=== PATIENT | female | born 1935 | race Caucasian/White ===

== ENCOUNTER 2024-07-11 20:20 | Inpatient (IN) | payer MEDICARE, BC ==
[~2024-07-11] VITALS: Ht 165.1 cm; Wt 56.0 kg
[~2024-07-11 20:20] MED LIST: AMLO10TA13 PO; LATA2.5D14 EACHEYE; MELA5CAP PO; METO-395 PO; OMEP20CA16 PO; ZOLP5TAB8 PO
[2024-07-11 20:43] LABS: BASOPHILS # (AUTO) 0.1 X10'3 (0-0.2); EOSINOPHILS # (AUTO) 0.1 X10'3 (0-0.9); EOSINOPHILS % (AUTO) 1.5 % (0-6); HEMATOCRIT 33.4 % (35.0-45.0); HEMOGLOBIN 11.1 g/dl (12.0-16.0); LYMPHOCYTES # (AUTO) 1.5 X10'3 (1.1-4.8); LYMPHOCYTES % (AUTO) 23.9 % (21-51); MEAN CORPUSCULAR HEMOGLOBIN 25.7 PG (27.0-31.0); MEAN CORPUSCULAR HGB CONC 33.1 g/dL (33.0-36.5); MEAN CORPUSCULAR VOLUME 77.5 FL (78-98); MEAN PLATELET VOLUME 8.7 FL (7.4-10.4); MONOCYTES # (AUTO) 0.6 X10'3 (0-0.9); MONOCYTES % (AUTO) 9.4 % (2-12); NEUTROPHILS # (AUTO) 4.1 X10'3 (1.8-7.7); NEUTROPHILS % (AUTO) 64.2 % (42-75); PLATELET COUNT 153 X10'3 (140-440); RED BLOOD COUNT 4.31 X10'6 (4.20-5.60); RED CELL DISTRIBUTION WIDTH 14.9 % (11.5-14.5); WHITE BLOOD COUNT 6.5 X10'3 (4.5-11.0)
[2024-07-11 20:53] LABS: ALBUMIN 3.8 G/DL (3.4-5.0); ANION GAP 8 (8-16); BLOOD UREA NITROGEN 16 MG/DL (7-18); BUN/CREATININE RATIO 14.4 (10.0-20.0); CHLORIDE 103 MMOL/L (99-107); CREATININE 1.11 MG/DL (0.40-0.90); GLUCOSE 117 MG/DL (70-104); POTASSIUM 3.4 MMOL/L (3.5-5.1); SODIUM 140 MMOL/L (135-145); eCRCL 32 ML/MIN; eGFR 47 ML/MIN
[2024-07-11 20:55] LABS: APTT 25 SECONDS (22-32); INR 1.1 INR; PROTHROMBIN TIME 11.1 SECONDS (9.0-12.0)
[2024-07-11] MEDS: aspirin 325mg tablet PO ONE (21:09)
[2024-07-11] MEDS ORDERED: morphine 2 MG/ML inj. syringe IV PRN (22:10)
[2024-07-11] MEDS ORDERED: magnesium Cl slow-release 64mg tablet PO PRN (22:10)
[2024-07-11] MEDS ORDERED: magnesium sulf-water 4G/100mL 100 ML IV PRN (22:10)
[2024-07-11] MEDS ORDERED: ondansetron/PF 4mg/2ml inj IV PRN (22:10)
[2024-07-11] MEDS ORDERED: potassium Cl 20 mEq SR tablet PO PRN (22:10)
[2024-07-11] MEDS ORDERED: acetaminophen 325mg tablet PO PRN (22:10)
[2024-07-11] MEDS ORDERED: potassium Cl 40MEQ/1/2NS 520ml 520 ML IV PRN (22:10)
[2024-07-11] MEDS ORDERED: mag hydrox/Alum hydrox/simeth 30ml oral suspension PO PRN (22:10)
[2024-07-11] MEDS ORDERED: magnesium sulf-water 2g/50mL 50 ML IV PRN (22:10)
[2024-07-11] MEDS ORDERED: magnesium hydroxide 30ml (MOM) UD suspension PO PRN (22:10)
[2024-07-11] MEDS ORDERED: HYDROcodone/acetaminophen 5mg/325mg tablet PO PRN (22:10)
[2024-07-11 22:21] LABS: BILIRUBIN,URINE NEGATIVE (Neg); CLARITY,URINE CLEAR (Clear); COLOR,URINE YELLOW (Yellow); GLUCOSE, URINE NEGATIVE (Neg); KETONES,URINE NEGATIVE (Neg); LEUKOCYTE ESTERASE ,URINE TRACE (Neg); NITRITES, URINE NEGATIVE (Neg); OCCULT BLOOD,URINE NEGATIVE (Neg); PH,URINE 6.5 (4.8-8.0); PROTEIN,URINE NEGATIVE (Neg); UROBILINOGEN,URINE 0.2 E.U/dL (0.2-1.0)
[2024-07-11] MEDS ORDERED: iohexol 350MG/ML 100ml bottle IV ONE (22:34)
[2024-07-11 22:41] LABS: UA COLLECTION TYPE CLN CATCH MIDSTREAM
[2024-07-11 22:43] LABS: HEMOGLOBIN A1C 5.8 % (4.5-6.2)
[2024-07-11 22:47] LABS: BACTERIA,URINE FEW /HPF (Neg); RBC,URINE NONE SEEN /HPF (0-2); SQUAMOUS EPITHELIAL CELL,UR FEW /LPF (FEW); WBC,URINE 0-4 /HPF (0-4)
[2024-07-11] MEDS: atorvastatin 10mg tablet PO SCH (23:35)
[2024-07-11] MEDS: potassium Cl 20 mEq SR tablet PO PRN (23:36)
[2024-07-11] MEDS: PERFLUTREN PROTEIN-A MICROSPHR (Optison) 0.22 MG/ML 3ML VIAL IV ONE (23:39)
[2024-07-12] MEDS ORDERED: BIOT5TAB PO (01:12)
[2024-07-12] MEDS ORDERED: UBID200C32 PO (01:12)
[2024-07-12] MEDS ORDERED: CHOL200042 PO (01:12)
[2024-07-12 03:28] LABS: BASOPHILS # (AUTO) 0.1 X10'3 (0-0.2); BASOPHILS % (AUTO) 0.8 % (0-1); EOSINOPHILS # (AUTO) 0.1 X10'3 (0-0.9); EOSINOPHILS % (AUTO) 1.5 % (0-6); HEMATOCRIT 32.9 % (35.0-45.0); HEMOGLOBIN 10.8 g/dl (12.0-16.0); LYMPHOCYTES # (AUTO) 1.8 X10'3 (1.1-4.8); LYMPHOCYTES % (AUTO) 25.4 % (21-51); MEAN CORPUSCULAR HEMOGLOBIN 25.6 PG (27.0-31.0); MEAN CORPUSCULAR HGB CONC 32.8 g/dL (33.0-36.5); MEAN CORPUSCULAR VOLUME 77.9 FL (78-98); MEAN PLATELET VOLUME 9.1 FL (7.4-10.4); MONOCYTES # (AUTO) 0.6 X10'3 (0-0.9); MONOCYTES % (AUTO) 8.9 % (2-12); NEUTROPHILS # (AUTO) 4.6 X10'3 (1.8-7.7); NEUTROPHILS % (AUTO) 63.4 % (42-75); PLATELET COUNT 157 X10'3 (140-440); RED BLOOD COUNT 4.23 X10'6 (4.20-5.60); RED CELL DISTRIBUTION WIDTH 14.7 % (11.5-14.5); WHITE BLOOD COUNT 7.2 X10'3 (4.5-11.0)
[2024-07-12 03:47] LABS: ALBUMIN 3.5 G/DL (3.4-5.0); ANION GAP 6 (8-16); BLOOD UREA NITROGEN 15 MG/DL (7-18); CALCIUM 9.3 MG/DL (8.5-10.1); CHLORIDE 106 MMOL/L (99-107); CHOL/HDL RATIO 2.2 (0.00-4.99); CHOLESTEROL 153 MG/DL (0-200); CREATININE 0.94 MG/DL (0.40-0.90); GLUCOSE 107 MG/DL (70-104); HDL CHOLESTEROL 69 MG/DL (35-60); LDL CHOLESTEROL 72 MG/DL (50-100); MAGNESIUM 1.9 MG/DL (1.5-2.4); POTASSIUM 3.8 MMOL/L (3.5-5.1); SODIUM 142 MMOL/L (135-145); TOTAL CARBON DIOXIDE 29.6 MMOL/L (24-32); TRIGLYCERIDES 64 MG/DL (20-135); eCRCL 38 ML/MIN; eGFR 56 ML/MIN
[2024-07-12] MEDS: docusate sod 100mg capsule PO SCH (08:00)
[2024-07-12] MEDS: K and/or MAG REPLACEMENT MC SCH (08:00)
[2024-07-12] MEDS: atorvastatin 20mg tablet PO SCH (09:59)
[2024-07-12 14:20] VITALS: BP 174/54; PULSE 60; RESP 15; TEMP 98.2; O2SAT 94
[2024-07-12 15:30] VITALS: RESP 15; O2SAT 96
[2024-07-12 18:30] VITALS: BP 176/75; PULSE 56; RESP 16; TEMP 97.7; O2SAT 98
[2024-07-12] MEDS: aspirin 81mg, enteric-coated 1 TAB TABLET.DR PO SCH (19:45)
[2024-07-12 22:00] VITALS: BP 191/66; PULSE 58; RESP 16; TEMP 97.7; O2SAT 98
[2024-07-13 04:00] VITALS: BP 143/62; PULSE 53; RESP 17; TEMP 98; O2SAT 97
[2024-07-13 06:21] VITALS: BP 192/66; PULSE 55; RESP 16; TEMP 97.7; O2SAT 96
[2024-07-13 06:29] LABS: BASOPHILS # (AUTO) 0.1 X10'3 (0-0.2); EOSINOPHILS # (AUTO) 0.1 X10'3 (0-0.9); EOSINOPHILS % (AUTO) 2.6 % (0-6); HEMATOCRIT 33.4 % (35.0-45.0); HEMOGLOBIN 10.9 g/dl (12.0-16.0); LYMPHOCYTES # (AUTO) 1.2 X10'3 (1.1-4.8); LYMPHOCYTES % (AUTO) 22.7 % (21-51); MEAN CORPUSCULAR HEMOGLOBIN 25.3 PG (27.0-31.0); MEAN CORPUSCULAR HGB CONC 32.5 g/dL (33.0-36.5); MEAN CORPUSCULAR VOLUME 77.8 FL (78-98); MEAN PLATELET VOLUME 8.5 FL (7.4-10.4); MONOCYTES # (AUTO) 0.5 X10'3 (0-0.9); MONOCYTES % (AUTO) 10.1 % (2-12); NEUTROPHILS # (AUTO) 3.3 X10'3 (1.8-7.7); NEUTROPHILS % (AUTO) 63.6 % (42-75); PLATELET COUNT 129 X10'3 (140-440); RED BLOOD COUNT 4.29 X10'6 (4.20-5.60); WHITE BLOOD COUNT 5.2 X10'3 (4.5-11.0)
[2024-07-13 06:50] LABS: ALBUMIN 3.4 G/DL (3.4-5.0); ANION GAP 6 (8-16); BLOOD UREA NITROGEN 20 MG/DL (7-18); CALCIUM 9.1 MG/DL (8.5-10.1); CHLORIDE 108 MMOL/L (99-107); CREATININE 0.91 MG/DL (0.40-0.90); GLUCOSE 104 MG/DL (70-104); MAGNESIUM 1.9 MG/DL (1.5-2.4); POTASSIUM 4.1 MMOL/L (3.5-5.1); SODIUM 143 MMOL/L (135-145); TOTAL CARBON DIOXIDE 28.8 MMOL/L (24-32); eCRCL 39 ML/MIN; eGFR 59 ML/MIN
[2024-07-13] MEDS: losartan 50mg tablet PO STA (07:42)
[2024-07-13] MEDS: atorvastatin 20mg tablet PO SCH (07:43)
[2024-07-13 10:00] VITALS: BP 165/56; PULSE 68; RESP 13; TEMP 98; O2SAT 97
[2024-07-13] MEDS ORDERED: VALS1TAB76 PO (11:17)
[2024-07-13] MEDS ORDERED: ATOR20TA66 PO (12:07)
[2024-07-13] MEDS ORDERED: ASPI-1071 PO (12:07)
[2024-07-13] MEDS ORDERED: AMLO5TAB16 PO (12:07)
[2024-07-13 13:17] VITALS: BP 168/72; PULSE 63
== END 2024-07-13 13:35 | disposition home or self-care (01) | DRG 304 ==
LOC: ER 20:21 → ED HOLD 21:20 → ORTHO 4S 07-12 14:06
PROVIDERS: ADMIT Internal Medicine Critical Care Medicine; ATTEND Family Medicine
PROC: B3251ZZ Computerized Tomography (CT Scan) of Bilateral Common Carotid Arteries using Low Osmolar Contrast (ICD-10-PCS; principal; 2024-07-11)
PROC: B32G1ZZ Computerized Tomography (CT Scan) of Bilateral Vertebral Arteries using Low Osmolar Contrast (ICD-10-PCS; 2024-07-11)
PROC: B32R1ZZ Computerized Tomography (CT Scan) of Intracranial Arteries using Low Osmolar Contrast (ICD-10-PCS; 2024-07-11)
PROC: B3281ZZ Computerized Tomography (CT Scan) of Bilateral Internal Carotid Arteries using Low Osmolar Contrast (ICD-10-PCS; 2024-07-11)
DX: I16.1 Hypertensive emergency (principal); N17.0 Acute kidney failure with tubular necrosis; I67.4 Hypertensive encephalopathy; G45.9 Transient cerebral ischemic attack, unspecified; R73.03 Prediabetes; I10 Essential (primary) hypertension; Z79.82 Long term (current) use of aspirin
CPT/HCPCS: 36415; 70450; 70496; 70498; 70551; 71045; 80048; 80061; 81001; 82948; 83036; 83735; 84484; 85025; 85610; 85730; 87081; 87088; 92508; 92616; 93005; 93306; 97161; 97530; 99291; G0378; Q9967

== ENCOUNTER 2025-04-09 09:02 | Day surgery (SDC) | payer MEDICARE, BC ==
[2025-04-08 12:12] LABS: MEAN PLATELET VOLUME 8.5 FL (7.4-10.4); RED CELL DISTRIBUTION WIDTH 14.5 % (11.5-14.5)
[2025-04-08 12:27] LABS: APTT 25 SECONDS (22-32); INR 1.0 INR
[2025-04-08 12:30] LABS: CREATININE 0.96 MG/DL (0.40-0.90); TOTAL CARBON DIOXIDE 30.1 MMOL/L (24-32); eGFR 55 ML/MIN
[2025-04-09] VITALS (14 sets, daily range): BP systolic 102–163; BP diastolic 56–104; PULSE 60–113; RESP 12–18; TEMP 97.8; O2SAT 92–97
[~2025-04-09] VITALS: Ht 149.9 cm; Wt 50.6 kg
[~2025-04-09 09:02] MED LIST changes: -AMLO10TA13 PO; +AMLO5TAB16 PO; +ASPI-1071 PO; +ATOR20TA66 PO; +BIOT5TAB PO; +CHOL200042 PO; -LATA2.5D14 EACHEYE; +LATA2.5D7 EACHEYE; +UBID200C32 PO; +VALS1TAB76 PO; +ZOLP5TAB18 PO; -ZOLP5TAB8 PO
[2025-04-09] MEDS ORDERED: CALC250T2 PO (09:51)
[2025-04-09] MEDS ORDERED: AMLO2.5T4 PO (09:51)
[2025-04-09] MEDS ORDERED: MAGN100T PO (09:51)
[2025-04-09] MEDS ORDERED: CYAN-116 PO (09:51)
[2025-04-09] MEDS ORDERED: ASPI-1674 PO (09:51)
[2025-04-09] MEDS ORDERED: [UNRECOGNIZED DRUG - OTHER] (09:53)
[2025-04-09] MEDS ORDERED: MELA10TA2 PO (09:56)
[2025-04-09] MEDS ORDERED: FERR-119 PO (09:56)
[2025-04-09] MEDS ORDERED: Co Q-10 (09:56)
--- NOTE | 2025-04-09 10:04 | ELECTROCARDIOGRAPH REPORT ---
[facility] Test Date: 2025-04-09 Test Time: 10:00:34 Pat Name: JOSELUIS BROOKS Department: [facility] Patient ID: [id number] Room: Gender: F Intermediate Designer: : 1935 Requested By: ALESIA VEGA Order Number: [id number] Reading MD: Dr. TED Vega Measurements Intervals Dante Rate: 118 P: 0 OK: 0 QRS: 41 QRSD: 129 T: 58 QT: 355 QTc: 498 Interpretive Statements Atrial fibrillation Anterior infarct, old Baseline wander in lead(s) V5 Electronically Signed On 04-09-2025 19:48:[address] TED Vega Please click the below link to view image of tracing.
[2025-04-09] MEDS: normal saline 1000ml 1,000 ML IV SCH (11:22)
[2025-04-09] MEDS ORDERED: fentaNYL/PF 50MCG/1 ML 2ML syringe ONE (11:33)
[2025-04-09] MEDS ORDERED: midazolam 1 mg/ML 2ml injection ONE ×2 (11:33→12:34)
[2025-04-09] MEDS ORDERED: LIDOcaine 1% W/epiNEPHrine 1:100,000 20ml vial ONE (11:33)
[2025-04-09] MEDS: ceFAZolin 2gm/dext,iso 50mL 50 ML IV ONE (12:19)
[2025-04-09] MEDS ORDERED: verapamil 2.5 mg/ml inj IV ONE (12:46)
[2025-04-09] MEDS ORDERED: HYDROcodone/acetaminophen 5mg/325mg tablet PO PRN (13:55)
[2025-04-09] MEDS ORDERED: CEPH250T PO (14:20)
[2025-04-09] MEDS ORDERED: APIX2.5T PO (14:20)
[2025-04-09] MEDS: vancomycin/NS 1 GM ADD-VANTAGE 250 ML X 1 DOSE IV ONE (14:40)
[2025-04-09] MEDS: HYDROcodone/acetaminophen 10/325mg tab PO PRN (15:17)
[2025-04-09] MEDS: ondansetron/PF 4mg/2ml inj IV ONE (16:50)
--- NOTE | 2025-04-09 18:46 | RADIOLOGY REPORT ---
CHEST RADIOGRAPH Indication: S/P PACEMAKER Technique: Frontal and lateral view of the chest was obtained Comparison: DI CHEST,SINGLE VIEW on DOS: 07/11/24, DI CHEST,SINGLE VIEW on DOS: 03/20/23 FINDINGS: Lines and Tubes: Left chest pacemaker Lungs: Clear Pleura: No effusion. No pneumothorax. Cardiomediastinal contours: Unremarkable Bones: Unremarkable IMPRESSION: No evidence of acute disease.
--- NOTE | 2025-04-11 01:24 | CARDIOLOGY REPORT ---
DATE OF SERVICE: 04/09/2025 DICTATING PHYSICIAN: TED Jones MD PERMANENT PACEMAKER IMPLANTATION REPORT DATE: 04/09/2025 GENDER: Female. AGE: 89 years. HEIGHT: 150 cm. WEIGHT: 50.6 kg,. BODY SURFACE AREA: 0.44 m2. PRIMARY PHYSICIAN: [facility]. SALES PROCESS MANAGER: Dr. jones INDICATION: The patient is a 89-year-old female with a history of hypertension, hyperlipidemia, and prior history of TIA, sick sinus syndrome with episodes of symptomatic bradycardia. Her monitor on 04/11/2025 showed a lowest heart rate of 38 and was managed medically. The patient continues to have increased exertional fatigue, tiredness, and dizziness. In view of her progressive symptoms, the patient prefers to proceed with the permanent pacemaker implantation. Risks, benefits and alternative options were discussed and informed consent was obtained. Sick sinus syndrome with prior symptomatic bradycardia. PROCEDURE: * Fluoroscopy * AV sequential pacemaker implantation. * Conscious sedation 75 minutes. Blood loss was five mL. DESCRIPTION OF PROCEDURE: The left infraclavicular area was prepped and draped in the usual fashion. Left subclavian vein was accessed using percutaneous needle technique. Two micropunctures were replaced with a J-wire. An incision was made in the left infraclavicular area. Using dissection and electrocautery, percutaneous prepectoral pacemaker pocket was fashioned. Initially k-wire was placed into the pacemaker pocket. Then, the pocket was irrigated with copious antibiotic solution. Two 7-American sheaths along with the J wire were placed. Through one of them, the RV lead was advanced to the RV. The lead was positioned in the RV apex appropriately. The patient's sensing threshold were placed using the peelaway technique. The second 7-American sheath along with the J wire was advanced into the left atrial appendage. Appropriate pacing and sensing thresholds were recorded The pacemaker leads were connected to the appropriate shocks to the pulse generator. Surgical closure was performed. TECHNICAL INFORMATION: Device used was an IPG MRI compatible pacemaker. Model #W3D1, serial number [id number], Medtronic 10.25, left pectoral location. P-wave amplitude 0.6 mV, 530 ohms of impedance. The patient is in A-fib. RV lead: Highlight Model number 5076, 8 cm long, serial number [id number] Medtronic 225, RV apex. R-wave amplitude was 10.9 mV. Pacing threshold was 0.75 V at 0.4 ms. IMPRESSION: An 89-year-old female with sick sinus syndrome with symptomatic bradycardia, underwent successful implantation of an AV sequential pacemaker with no complications. TED Jones MD TID: [id number] RECEIPT: [id number] CASANDRA/CHERYL/IAN CARD
== END 2025-04-09 19:00 | disposition home or self-care (01) ==
LOC: SSTAY O 09:02
PROVIDERS: ATTEND Internal Medicine Cardiovascular Disease
DX: I49.5 Sick sinus syndrome (principal); I48.91 Unspecified atrial fibrillation; E78.5 Hyperlipidemia, unspecified; I10 Essential (primary) hypertension; I25.2 Old myocardial infarction; G47.30 Sleep apnea, unspecified; M19.90 Unspecified osteoarthritis, unspecified site; Z86.73 Personal history of transient ischemic attack (TIA), and cerebral infarction without residual deficits; Z98.890 Other specified postprocedural states; Z79.82 Long term (current) use of aspirin; Z79.899 Other long term (current) drug therapy; Z90.710 Acquired absence of both cervix and uterus; Z90.49 Acquired absence of other specified parts of digestive tract; Z90.89 Acquired absence of other organs; Z82.49 Family history of ischemic heart disease and other diseases of the circulatory system; Z81.8 Family history of other mental and behavioral disorders; Z80.3 Family history of malignant neoplasm of breast
CPT/HCPCS: 33208; 36415; 71046; 80048; 85025; 85610; 85730; 93005; 99152; 99153; A4565; A6258; C1785; C1898; J0690; J1200; J2250; J2405; J3010; J3373; J3490; J7030; Z7610